=== PATIENT | male | born 1960 | race Caucasian/White ===

== ENCOUNTER → 2016-04-26 10:50 | Outpatient (CLI) | payer BC ==
[2014-05-18 15:48] VITALS: BMI 48.1
[~2016-04-26 10:50] MED LIST: ASPIRIN EC81 M1 PO; AVALIDE 300-12.1 TA1 PO; FISH OIL 1,0001 CA1; HYDROCODONE-APA1 TAB PO
[2016-04-26 12:09] LABS: BASOPHILS 0.2 % (0.0-2.0); EOSINOPHILS 1.9 % (0-7); HEMATOCRIT 44.5 % (42.0-54.0); HEMOGLOBIN 14.9 g/dL (13.5-17.5); IMMATURE GRANULOCYTES 0.5 % (0-5); LYMPHOCYTES 23.4 % (15-50); MCH 29.5 pg (26.0-34.0); MCHC 33.5 g/dL (31.0-37.0); MCV 88.1 fL (80.0-100.0); MEAN PLATELET VOLUME 9.8 fL (7.4-10.4); MONOCYTES 9.2 % (2-11); NEUTROPHILS 64.8 % (40-80); PLATELET COUNT 245 10x3/uL (130-400); RBC 5.05 10x6/uL (4.20-6.10); RDW 14.5 % (11.5-14.5)
[2016-04-26 12:32] LABS: BILIRUBIN - DIRECT 0.09 mg/dL (0.00-0.30); BILIRUBIN - INDIRECT 0.32 mg/dL (0.00-1.00); BILIRUBIN - TOTAL 0.41 mg/dL (0.2-1.3); PROTEIN - SERUM 7.2 g/dL (6.4-8.2)
== END | disposition home or self-care (01) ==
LOC: D.CT 10:50
PROVIDERS: Surgery
DX: Z85.038 Personal history of other malignant neoplasm of large intestine (principal)